=== PATIENT | female | born 1985 | race Caucasian/White ===

== ENCOUNTER → 2021-01-04 11:03 | Outpatient (CLI) | payer OTHER, SELFPAY ==
--- NOTE | 2021-01-04 | DI.US.S_ITS ---
PROCEDURE: US ABDOMEN LIMITED INDICATIONS: LUQ MASS TECHNIQUE: Real-time focused scanning was performed of the abdomen, with image documentation. COMPARISON: None. FINDINGS: No sonographically visible mass or fluid collection seen. IMPRESSION: No sonographic abnormality. If there is continued clinical concern for mass, consider CT or MRI for further assessment. Dictated by: Ricki Mendoza A Interpreted: Sumeet Hatfield MD on 01/04/2021 at 16:35 Transcribed by: DARRLE on 01/04/2021 at 16:35 Approved by: Sumeet Hatfield M.D. on 01/04/2021 at 17:05
== END ==
PROVIDERS: PCP Nurse Practitioner Family; Referring Provider Nurse Practitioner Family; Visit Provider Nurse Practitioner Family
DX: R19.02 Left upper quadrant abdominal swelling, mass and lump (principal)
CPT/HCPCS: 76705